=== PATIENT | male | born 1945 | race Caucasian/White ===

== ENCOUNTER 2020-01-02 09:08 | Emergency (ER) | payer MEDICARE ==
[~2020-01-02] VITALS: Ht 180.3 cm; Wt 74.7 kg
--- NOTE | 2020-01-02 09:54 | NUR ---
Pt to 1 from lobby
--- NOTE | 2020-01-02 09:59 | NUR ---
THIS IS A 74 YEAR OLD MALE WHO C/O INTERMITTENT PALPITATIONS FOR 2 WEEKS WHERE IT FEELS LIKE HE CAN'T GET HIS BREATH. LAST FEW NIGHTS HE IS STARTLED OUT OF SLEEP AND FEELS LIKE CAN'T BREATHE. PT PLACED ON MARKETING TEAM LEAD SOME PVCS, CYCLE VS, CONTINOUS SP02
[2020-01-02] MEDS ORDERED: SODIUM CHLORIDE FLUSH 10ML SYR IVF ONE (10:30)
[2020-01-02 10:44] LABS: BASOPHILS # (AUTO) 0.03 x10^3/uL (0-0.1); BASOPHILS % (AUTO) 0 % (0-1); EOSINOPHILS # (AUTO) 0.06 x10^3/uL (0-0.4); EOSINOPHILS % (AUTO) 1 % (1-7); LYMPHOCYTES # (AUTO) 0.79 x10^3/uL (1-3.4); LYMPHOCYTES % (AUTO) 12 % (22-44); MD NO; MEAN CORPUSCULAR HEMOGLOBIN 32.8 pg (27.5-34.5); MEAN CORPUSCULAR HGB CONC 33.7 g/dL (33.2-36.2); MEAN CORPUSCULAR VOLUME 97.3 fL (81-97); MEAN PLATELET VOLUME 10.7 fL (7.4-10.4); MONOCYTES # (AUTO) 0.51 x10^3/uL (0.2-0.8); MONOCYTES % (AUTO) 8 % (2-9); NEUTROPHILS # (AUTO) 5.43 x10^3/uL (1.8-6.8); NEUTROPHILS % (AUTO) 80 % (42-75); PLATELET COUNT 191 x10^3/uL (130-400); RED CELL DISTRIBUTION WIDTH 13.6 % (9.4-14.8)
[2020-01-02 10:53] LABS: ALBUMIN 3.4 g/dL (3.4-5.0); ANION GAP 8 mmol/L (5-15); CALCIUM 8.8 mg/dL (8.5-10.1); CHLORIDE 110 mmol/L (98-107); CREATININE 1.42 mg/dL (0.7-1.3)
[2020-01-02 10:57] LABS: FREE T4 (FREE THYROXINE) 1.19 ng/dL (0.76-1.46); TROPONIN I 0.059 ng/mL (0.000-0.045)
--- NOTE | 2020-01-02 11:42 | NUR ---
PT UP TO BATHROOM GAIT STEADY, VERBALIZED NO NEEDS AT THIS TIME
--- NOTE | 2020-01-02 11:53 | NUR ---
Break RN note: Dr. Murillo at bedside to discuss POC with pt. Pt resting in bed,
[2020-01-02] MEDS ORDERED: ASPIRIN 81 MG TABLET CHEW ONE (12:07)
[2020-01-02 12:09] VITALS: BP 129/76
[2020-01-02] MEDS ORDERED: ASPIRIN 81 MG TABLET CHEW PO ONE (12:30)
== END 2020-01-02 12:18 | disposition home or self-care (01) ==
LOC: ED 10:30
DX: I49.3 Ventricular premature depolarization (principal); J15.9 Unspecified bacterial pneumonia
CPT/HCPCS: 36415; 71045; 80048; 82040; 84439; 84443; 84484; 85025; 93005; 99285